=== PATIENT | female | born 1940 | race African-American/Black ===

== ENCOUNTER 2017-05-15 07:42 | Emergency (ER) | payer MEDICARE, BC | END 2017-05-15 08:03 | disposition left against medical advice (07) | LOC: ERS 07:42 | DX: Z53.21 Procedure and treatment not carried out due to patient leaving prior to being seen by health care provider (principal) ==

== ENCOUNTER 2018-10-26 11:47 | Outpatient (CLI) | payer MEDICARE, BC ==
--- NOTE | 2018-10-26 13:10 | RAD ---
TWO VIEW CHEST: INDICATION: Chest pain. COMPARISON: 10/10/2013. FINDINGS: Lungs are hyperinflated. There is no consolidation, effusion, or pneumothorax. Cardiac silhouette i s normal size. There is vascular calcification. Osseous degenerative changes are present. IMPRESSION: 1. Hyperinflated lungs indicating chronic obstructive pulmonary disease. Correlate clinically. 2. No focal consolidation. 3. No significant interval change from 10/10/2013 exam. POS: [facility]
== END 2018-10-26 11:48 | disposition home or self-care (01) ==
LOC: BICRAD 11:47
PROVIDERS: ATTEND Family Medicine
DX: R07.9 Chest pain, unspecified (principal); J44.9 Chronic obstructive pulmonary disease, unspecified
CPT/HCPCS: 71046

== ENCOUNTER 2021-02-13 16:06 | Emergency (ER) | payer MEDICARE, BC | END 2021-02-13 20:24 | disposition left against medical advice (07) | LOC: ERS 16:06 | DX: Z53.21 Procedure and treatment not carried out due to patient leaving prior to being seen by health care provider (principal) ==

== ENCOUNTER 2023-01-02 09:08 | Emergency (ER) | payer MEDICARE ==
[2023-01-02 09:43] LABS: #Eosinphils 0.1 thou/uL (0.0-0.7); #Monocytes 0.4 thou/uL (0.11-0.59); #Neutrophils 2.9 thou/uL (1.40-6.50); %Basophils 0.2 % (0.0-1.0); %Eosinophils 2.1 % (0.0-10.0); %Lymphocytes 30.4 % (21.0-51.0); %Monocytes 8.4 % (0.0-10.0); %Neutrophils 58.7 % (42.0-75.0); Hematocrit 39.4 % (36.0-47.0); Hemoglobin 12.8 g/dL (12.0-16.0); Mean Corpuscular HGB CONC 32.5 g/dL (32.0-36.0); Mean Corpuscular Hemoglobin 31.4 pg (27.0-31.0); Mean Corpuscular Volume 96.6 fl (78.0-98.0); Mean Platelet Volume 9.3 fL (7.4-10.4); Platelet Count 267 10x3/uL (130-400); RBC Distribution Width 13.9 % (11.5-14.5); Red Blood Cell (RBC) Count 4.08 mill/uL (4.20-5.40); White Blood Cell (WBC) Count 4.9 10x3/uL (4.8-10.8)
[2023-01-02 10:09] LABS: Troponin I Less than 0.010 ng/mL (< 0.028)
[2023-01-02] MEDS ORDERED: Ondansetron PF 4 MG/2 ML Vial ONE (10:29)
[2023-01-02 10:44] LABS: ALT (SGPT) 8 U/L (8-55); AST (SGOT) 20 U/L (5-34); Albumin 4.2 g/dL (3.4-4.8); Alkaline Phosphatase 76 U/L (40-110); Anion Gap 12 mmol/L (10-20); BUN (Urea Nitrogen) 16 mg/dL (9.8-20.1); Bilirubin, Total 0.5 mg/dL (0.2-1.2); Calc. Creatinine Clearance 0 mL/min (70-130); Carbon Dioxide 26 mmol/L (23-31); Estimated GFR 47; Globulin 3.2 g/dL (2.4-3.5); Glucose 79 mg/dL (83-110); Lipase 50 U/L (8-78); Magnesium 1.8 mg/dL (1.6-2.6); Protein, Total 7.4 g/dL (5.8-8.1)
[2023-01-02] MEDS ORDERED: Iopamidol-370 76% 500 ML MDV (1 ML CHARGE) ONE (10:49)
[2023-01-02 10:59] LABS: Chloride 106 mmol/L (98-107); Sodium 140 mmol/L (136-145)
[2023-01-02 11:34] LABS: Bacteria/HPF None Seen HPF (None Seen); Bilirubin Negative (Negative); Blood, Urine Trace (Negative); CAUTI Indications for Culture Pelvic or flank pain; Clarity Clear (Clear); Glucose, Urine (Dipstick) Normal (Negative); Ketone, Urine Negative (Negative); Leukocyte 500 Leu/uL (Negative); Nitrite Negative (Negative); Protein, Urine (Dipstick) Negative (Neg-Trace); RBC/HPF 0-3 HPF (0-3); Specific Gravity, Urine 1.023 (1.002-1.036); Squamous Epithelial 0-3 HPF (0-3); Urobilinogen Normal mg/dL (Less than 2); WBC/HPF 0-3 HPF (0-3); pH, Urine 6.5 (5.0-9.0)
[2023-01-02 11:51] LABS: Urine Culture Reflex No No
[2023-01-02] MEDS ORDERED: Doxycycline 100 MG CAP ONE (12:54)
== END 2023-01-02 13:15 | disposition home or self-care (01) ==
LOC: ERS 09:08
DX: K62.89 Other specified diseases of anus and rectum (principal)
CPT/HCPCS: 36415; 74177; 80053; 81001; 83690; 83735; 84484; 85025; 93005; 96374; J2405; Q9967

== ENCOUNTER 2023-04-21 06:41 | Emergency (ER) | payer MEDICARE ==
[2023-04-21] MEDS ORDERED: Ketorolac Tromethamine 30 MG (1 mL) VIAL ONE (07:39)
== END 2023-04-21 09:15 | disposition home or self-care (01) ==
LOC: ERS 06:41
DX: M25.562 Pain in left knee (principal); M79.605 Pain in left leg; X58.XXXA Exposure to other specified factors, initial encounter; Z75.3 Unavailability and inaccessibility of health-care facilities
CPT/HCPCS: 96372; J1885

== ENCOUNTER 2023-04-28 13:46 | Outpatient (CLI) | payer MEDICARE | END 2023-04-28 13:47 | disposition home or self-care (01) | LOC: BICMAMMO 13:46 | PROVIDERS: ATTEND Family Medicine | DX: N64.4 Mastodynia (principal) | CPT/HCPCS: 77066; G0279 ==